=== PATIENT | male | born 1960 | race Caucasian/White ===

== ENCOUNTER 2018-01-24 20:18 | Emergency (ER) | payer OTHER ==
[2018-01-24] MEDS ORDERED: CEPHALEXIN 500 MG CAP PO ONE (21:44)
--- NOTE | 2018-01-24 21:44 | EDPHY ---
H & P Time Seen by Provider: 01/24/18 20:45 HPI/ROS: CHIEF COMPLAINT: Foreign body right hand HISTORY OF PRESENT ILLNESS: 57-year-old male presents to the emergency department with retained foreign body in his right hand. The patient was at work and accidentally got a splinter in his right thumb. He was unable to get this out on his own at home. He believes his tetanus shot is current. Describes the pain as mild although increases with movement. ROS: Denies numbness or tingling in his fingers, pain in the right wrist. Past Medical/Surgical History: Hypothyroidism Social History: , originally from the [place] Smoking Status: Never smoked Physical Exam: On examination the patient has appears to be a puncture wound to the base of the right thumb overlying thenar eminence. Full range of motion of the right thumb. Thenar eminence is very tender. Palpable foreign body noted. Normal sensation to light touch with normal 2 point discrimination. No palpable bony tenderness. No lymphangitis. Full range of motion of his other fingers and his right wrist. Constitutional: Initial Vital Signs Temperature (C) 36.4 C 01/24/18 20:23 Heart Rate 58 L 01/24/18 20:23 Respiratory Rate 16 01/24/18 20:23 Blood Pressure 117/81 H 01/24/18 20:23 O2 Sat (%) 95 01/24/18 20:23 O2 Delivery Mode Room Air Allergies/Adverse Reactions: No Known Allergies Allergy (Unverified 03/27/10 14:39) Home Medications: Medication Instructions Recorded Cephalexin [Keflex] 500 mg PO QID #28 cap 01/24/18 Thyroid Medication 01/24/18 MDM/Departure - MDM Procedures: After consent was obtained from the patient, the skin was thoroughly cleansed with chlorhexidine and small amount of 1% lidocaine with epinephrine was instilled and puncture wound. Small incision was made and a piece of wood approximately 1 in long was easily removed. No additional foreign bodies palpated. The wound was explored. This was then thoroughly irrigated and bacitracin and dressing applied. The patient declined a splint. Medications Given: Discontinued Medications Cephalexin HCl (Keflex) 500 mg PO EDNOW ONE PRN Reason: Protocol Stop: 01/24/18 21:45 Last Admin: 01/24/18 21:59 Dose: 500 mg ED Course/Re-evaluation: 57-year-old male presents with retained foreign bodies right hand, this was removed see procedure note. The patient will be started on Keflex. He was given wound care precautions and will return if he notices any signs or symptoms of infection or any other concerns. - Depart Disposition: Home, Routine, Self-Care Clinical Impression: Foreign body of right hand Qualifiers: Encounter type: initial encounter Qualified Code(s): S60.551A - Superficial foreign body of right hand, initial encounter Condition: Good Instructions: Soft Tissue Foreign Body (ED) Additional Instructions: Keflex 500 mg 4 times daily for 1 week to prevent infection. Splint for comfort and support. Return if you notice any signs or symptoms of infection such as redness, swelling, increased pain, fever, purulent drainage. Please update your tetanus shot within 72 hr if needed. Prescriptions: Cephalexin [Keflex] 500 mg PO QID #28 cap Referrals: NONE *PRIMARY CARE P,. [Primary Care Provider] - As per Instructions
[2018-01-24 22:01] VITALS: BP 120/85
== END 2018-01-24 22:01 | disposition home or self-care (01) ==
PROC: 0JCJ0ZZ Extirpation of Matter from Right Hand Subcutaneous Tissue and Fascia, Open Approach (ICD-10-PCS; principal; 2018-01-24)
DX: S60.551A Superficial foreign body of right hand, initial encounter (principal); W45.8XXA Other foreign body or object entering through skin, initial encounter; Y92.69 Other specified industrial and construction area as the place of occurrence of the external cause; Y99.0 Civilian activity done for income or pay; Y93.89 Activity, other specified